=== PATIENT | female | born 1965 | race Caucasian/White ===

== ENCOUNTER 2024-11-08 20:49 | Emergency (ER) | payer BC, SELFPAY ==
[2024-11-08 20:59] VITALS: BP 179/84; PULSE 72; RESP 20; TEMP 36.1; O2SAT 99; BMI 35.5
[2024-11-08 23:41] VITALS: BP 187/81; PULSE 78; RESP 16; TEMP 36.5; O2SAT 98
== END 2024-11-08 23:42 | disposition left against medical advice (07) ==
PROVIDERS: Emergency Provider Emergency Medicine
CPT/HCPCS: 99281